=== PATIENT | male | born 1975 | race Caucasian/White ===

== ENCOUNTER → 2020-12-28 | Outpatient (CLI) | payer OTHER | END | disposition home or self-care (01) | LOC: RADPV 13:05 | PROVIDERS: ATTEND Family Medicine | DX: M25.461 Effusion, right knee (principal); M17.11 Unilateral primary osteoarthritis, right knee; M25.761 Osteophyte, right knee; Z18.10 Retained metal fragments, unspecified; Z87.828 Personal history of other (healed) physical injury and trauma | CPT/HCPCS: 73700 ==

== ENCOUNTER → 2021-01-04 | Outpatient (CLI) | payer OTHER | END | disposition home or self-care (01) | LOC: RADPV 08:13 | PROVIDERS: ATTEND Family Medicine | DX: R10.11 Right upper quadrant pain (principal) | CPT/HCPCS: 76700 ==